=== PATIENT | male | born 1995 | race Caucasian/White ===

== ENCOUNTER 2018-02-19 00:43 | Emergency (ER) | payer BC ==
[~2018-02-19] VITALS: Ht 180.3 cm; Wt 108.9 kg
[2018-02-19] MEDS ORDERED: CLINDAMYCIN HCL 300 MG CAPSULE ONE (01:28)
[2018-02-19] MEDS ORDERED: CLINDAMYCIN HCL 150 MG CAPSULE PO ONE (01:30)
[2018-02-19] MEDS ORDERED: NEOMY/BACITRA/POLYMYXIN B OINT UD PACKET TP ONE ×2 (01:30→01:39)
--- NOTE | 2018-02-19 01:30 | NUR ---
xray at bedside
[2018-02-19 01:48] VITALS: BP 155/81
== END 2018-02-19 01:49 | disposition home or self-care (01) ==
LOC: ER 00:54
DX: L02.415 Cutaneous abscess of right lower limb (principal); F15.10 Other stimulant abuse, uncomplicated; F11.10 Opioid abuse, uncomplicated
CPT/HCPCS: 73590; A4663